=== PATIENT | male | born 1935 | race Caucasian/White ===

== ENCOUNTER 2018-11-30 08:28 | Emergency (ER) | payer MEDICARE, MEDICAID ==
[2018-11-30 08:37] VITALS: BP 106/59
[2018-11-30 09:05] LABS: ANION GAP 13.6; CHLORIDE,CL 102 mmol/L (101-111); SODIUM,NA 135 mmol/L (135-145)
--- NOTE | 2018-11-30 09:07 | EDM.PDOC ---
ED HPI GENERAL MEDICAL PROBLEM - General Chief Complaint: Chest Pain Stated Complaint: AMBULANCE Time Seen by Provider: 11/30/18 08:58 Source of Information: Reports: Patient, EMS History Limitations: Reports: No Limitations - History of Present Illness INITIAL COMMENTS - FREE TEXT/NARRATIVE: This 83 yo male patient was brought to the ED due to neck pain that radiated down into his left arm. The patient reports his neck pains started about 2 days ago, but the tingling in his left arm was first noticed this morning at about 0600. The patient reports his symptoms are better at this time. The patient reports he has no other problems at this time. EMS had given the patient Aspirin and 1 dose of Nitro. 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, Aspirin neck Pain Score (Numeric/FACES): 4 - Related Data Allergies Allergy/AdvReac Type Severity Reaction Status Date / Time No Known Allergies Allergy Verified 11/30/18 08:40 Home Meds: Home Meds Aspirin [Children's Aspirin] 81 mg PO DAILY 10/23/13 [History] Calcium Carbonate/Vitamin D3 [Calcium 600 + Vit D Tablet] 1 each PO DAILY [History] Colestipol HCl 1 gm PO DAILY 10/23/13 [History] Finasteride [Proscar] 5 mg PO DAILY 10/23/13 [History] Nitroglycerin [Nitrostat] 0.4 mg SL ASDIRECTED 10/23/13 [History] Omeprazole 20 mg PO DAILY 10/23/13 [History] Terazosin HCl [Terazosin] 2 mg PO DAILY 10/23/13 [History] Past Medical History Cardiovascular History: Reports: High Cholesterol, Other (See Below) Other Cardiovascular History: pt states heart was racing, spent time in [place] with cardiology, was never informed as to results Respiratory History: Reports: COPD Gastrointestinal History: Reports: GERD Genitourinary History: Reports: BPH Musculoskeletal History: Reports: Arthritis Neurological History: Reports: None Psychiatric History: Reports: None Endocrine/Metabolic History: Reports: None Hematologic History: Reports: None Immunologic History: Reports: None Oncologic (Cancer) History: Reports: None Dermatologic History: Reports: None - Infectious Disease History Infectious Disease History: Reports: Hepatitis A - Past Surgical History HEENT Surgical History: Reports: Cataract Surgery Cardiovascular Surgical History: Reports: None Respiratory Surgical History: Reports: None GI Surgical History: Reports: Hernia, Inguinal Male Surgical History: Reports: TURP-Transurethral Resection of Prostate Neurological Surgical History: Reports: None Musculoskeletal Surgical History: Reports: Hip Replacement, Other (See Below) Other Musculoskeletal Surgeries/Procedures:: right Social & Family History - Family History Family Medical History: Noncontributory - Tobacco Use Smoking Status *Q: Former Smoker Used Tobacco, but Quit: Yes Month/Year Tobacco Last Used: 1979 Second Hand Smoke Exposure: No - Caffeine Use Caffeine Use: Reports: Coffee - Recreational Drug Use Recreational Drug Use: No - Living Situation & Occupation Living situation: Reports: with Family Occupation: Retired ED ROS GENERAL - Review of Systems Review Of Systems: ROS reveals no pertinent complaints other than HPI. ED EXAM, GENERAL - Physical Exam Exam: See Below Exam Limited By: No Limitations General Appearance: Alert, WD/WN, Moderate Distress Eye Exam: Bilateral Eye: EOMI, Normal Inspection, PERRL Ears: Normal External Exam, Normal Canal, Hearing Grossly Normal, Normal TMs Nose: Normal Inspection, Normal Mucosa, No Blood Throat/Mouth: Normal Inspection, Normal Lips, Normal Teeth, Normal Gums, Normal Oropharynx, Normal Voice, No Airway Compromise Head: Atraumatic, Normocephalic Neck: Normal Inspection, Supple, Non-Tender, Full Range of Motion Respiratory/Chest: No Respiratory Distress, Lungs Clear, Normal Breath Sounds, No Accessory Muscle Use, Chest Non-Tender Cardiovascular: Normal Peripheral Pulses, Regular Rate, Rhythm, No Edema, No Gallop, No JVD, No Murmur, No Rub GI/Abdominal: Normal Bowel Sounds, Soft, Non-Tender, No Organomegaly, No Distention, No Abnormal Bruit, No Mass (Male) Exam: Deferred Rectal (Males) Exam: Deferred Back Exam: Normal Inspection, Full Range of Motion, NT Extremities: Normal Inspection, Normal Range of Motion, Non-Tender, Normal Capillary Refill, No Pedal Edema Neurological: Alert, Oriented, CN II-XII Intact, Normal Cognition, Normal Gait, Normal Reflexes, No Motor/Sensory Deficits Psychiatric: Normal Affect, Normal Mood Skin Exam: Warm, Dry, Intact, Normal Color, No Rash Lymphatic: No Adenopathy Course - Vital Signs Last Recorded V/S: Last Vital Signs Temp 37.3 C 11/30/18 08:35 Pulse 90 11/30/18 08:35 Resp 12 11/30/18 08:35 BP 106/59 L 11/30/18 08:35 Pulse Ox 96 11/30/18 08:35 - Orders/Labs/Meds Orders: Active Orders 24 hr Category Date Time Status EKG Documentation Completion [RC] URGENT Care 11/30/18 08:23 Active Labs: Laboratory Tests 11/30/18 11/30/18 Range/Units 08:35 08:35 WBC 12.2 H (5.0-10.0) 10^3/uL RBC 4.29 L (4.6-6.2) 10^6/uL Hgb 13.0 L D (14.0-18.0) g/dL Hct 37.9 L (40.0-54.0) % MCV 88.3 (80-100) fL MCH 30.3 (27.0-34.0) pg MCHC 34.3 (33.0-35.0) g/dL Plt Count 202 (150-450) 10^3/uL Neut % (Auto) 67.9 (42.2-75.2) % Lymph % (Auto) 18.4 L (20.5-50.1) % Eddy % (Auto) 13.4 H (2-8) % Eos % (Auto) 0.1 L (1.0-3.0) % Baso % (Auto) 0.2 (0.0-1.0) % Sodium 135 (135-145) mmol/L Potassium 3.6 (3.6-5.0) mmol/L Chloride 102 (101-111) mmol/L Carbon Dioxide 23.0 (21.0-31.0) mmol/L Anion Gap 13.6 BUN 17 (7-18) mg/dL Creatinine 0.9 (0.6-1.3) mg/dL Est Cr Clr Drug Dosing 55.14 mL/min Estimated GFR (MDRD) > 60 BUN/Creatinine Ratio 18.88 Glucose 130 H (74-105) mg/dL Calcium 8.7 (8.4-10.2) mg/dl Total Bilirubin 2.2 H (0.2-1.0) mg/dL AST 22 (10-42) IU/L ALT 18 (10-60) IU/L Alkaline Phosphatase 82 (42-121) IU/L Troponin I < 0.02 (0.00-0.02) ng/ml Total Protein 6.5 L (6.7-8.2) g/dl Albumin 3.5 (3.2-5.5) g/dl Globulin 3.0 Albumin/Globulin Ratio 1.17 Departure - Departure Time of Disposition: 09:23 Disposition: Home, Self-Care 01 Condition: Fair Clinical Impression: Peripheral neuropathic pain Instructions: Neuropathic Pain Forms: ED Department Discharge Care Plan Goals: The patient was advised of the examination, EKG, lab and x-ray results during the visit. The patient was encouraged to continue to monitor his symptoms. The patient should follow-up with his [facility] provider for continued evaluation and further management. If the patient has any additional symptoms or concerns, the patient should either return to the emergency department or visit his primary care facility. - My Orders Last 24 Hours: My Active Orders 11/30/18 08:23 EKG Documentation Completion [RC] URGENT - Assessment/Plan Last 24 Hours: My Active Orders 11/30/18 08:23 EKG Documentation Completion [RC] URGENT
== END 2018-11-30 09:40 | disposition home or self-care (01) ==
LOC: DL.ED 08:28
DX: M79.2 Neuralgia and neuritis, unspecified (principal); J44.9 Chronic obstructive pulmonary disease, unspecified; Z79.899 Other long term (current) drug therapy; Z87.891 Personal history of nicotine dependence
CPT/HCPCS: 36415; 71045; 80053; 84484; 85025; 93005; 99285

== ENCOUNTER 2021-08-31 12:56 | Emergency (ER) | payer MEDICARE, OTHER ==
[2021-08-31 13:22] VITALS: BP 138/98; PULSE 85
--- NOTE | 2021-08-31 14:33 | EDM.PDOC ---
ED HPI GENERAL MEDICAL PROBLEM - General Chief Complaint: Genitourinary Problem Stated Complaint: BLOOD IN URINE / [facility] SAID GO TO ER Time Seen by Provider: 08/31/21 13:30 Source of Information: Reports: Patient, RN, RN Notes Reviewed History Limitations: Reports: No Limitations - History of Present Illness INITIAL COMMENTS - FREE TEXT/NARRATIVE: Shruthi is an 85 y/o male with a history of TURP and urolift, who presents to the ED via personal vehicle at the request of his [facility] for complaints of hematuria. The patient states his hematuria began abruptly this morning at approximately 0100. He noted a decrease in the amount of kristie-red blood in his urine over the course of the night, but reports he passed what appeared to be a clot at some point. He denies dysuria, inability to void, or flank pain. He denies fever, shaking chills, nausea, vomiting, or abdominal pain. He notes his urine was clear and yellow prior to his presentation today. He denies tobacco, alcohol, or recreational drug use. generalized Pain Score (Numeric/FACES): 3 - Related Data Allergies Allergy/AdvReac Type Severity Reaction Status Date / Time meperidine [From Demerol] Allergy Rash Verified 08/31/21 13:23 Home Meds: Home Meds Aspirin [Children's Aspirin] 81 mg PO DAILY 10/23/13 [History] Calcium Carbonate/Vitamin D3 [Calcium 600 + Vit D Tablet] 2 each PO DAILY 10/23/13 [History] Colestipol HCl 1 gm PO BID 10/23/13 [History] Finasteride [Proscar] 5 mg PO BEDTIME 10/23/13 [History] Nitroglycerin [Nitrostat] 0.4 mg SL ASDIRECTED 10/23/13 [History] Terazosin HCl [Terazosin] 2 mg PO BEDTIME 10/23/13 [History] Cetirizine HCl 10 mg PO BEDTIME 08/31/21 [History] Famotidine 20 mg PO BID 08/31/21 [History] Levothyroxine [Synthroid] 50 mcg PO ACBREAKFAST 08/31/21 [History] Metoprolol Tartrate 12.5 mg PO .MORNING 08/31/21 [History] Metoprolol Tartrate 25 mg PO .EVENING 08/31/21 [History] Past Medical History Cardiovascular History: Reports: High Cholesterol, Other (See Below) Other Cardiovascular History: pt states heart was racing, spent time in [place] with cardiology, was never informed as to results Respiratory History: Reports: COPD Gastrointestinal History: Reports: GERD Genitourinary History: Reports: BPH Musculoskeletal History: Reports: Arthritis Neurological History: Reports: None Psychiatric History: Reports: None Endocrine/Metabolic History: Reports: None Hematologic History: Reports: None Immunologic History: Reports: None Oncologic (Cancer) History: Reports: None Dermatologic History: Reports: None - Infectious Disease History Infectious Disease History: Reports: Hepatitis A - Past Surgical History HEENT Surgical History: Reports: Cataract Surgery Cardiovascular Surgical History: Reports: None Respiratory Surgical History: Reports: None GI Surgical History: Reports: Hernia, Inguinal Male Surgical History: Reports: TURP-Transurethral Resection of Prostate Other Male Surgeries/Procedures: urolift Neurological Surgical History: Reports: None Musculoskeletal Surgical History: Reports: Hip Replacement, Other (See Below) Other Musculoskeletal Surgeries/Procedures:: right Social & Family History - Family History Family Medical History: No Pertinent Family History - Tobacco Use Tobacco Use Status *Q: Never Tobacco User Second Hand Smoke Exposure: No - Caffeine Use Caffeine Use: Reports: Coffee - Recreational Drug Use Recreational Drug Use: No - Living Situation & Occupation Living situation: Reports: with Family Occupation: Retired ED ROS GENERAL - Review of Systems Review Of Systems: Comprehensive ROS is negative, except as noted in HPI. ED EXAM, RENAL/ - Physical Exam Exam: See Below Exam Limited By: No Limitations General Appearance: Alert, No Apparent Distress Ears: Normal External Exam, Hearing Grossly Normal Nose: Normal Inspection, No Blood Throat/Mouth: Normal Inspection, Normal Oropharynx, Normal Voice, No Airway Compromise Head: Atraumatic, Normocephalic Neck: Normal Inspection, Full Range of Motion Respiratory/Chest: No Respiratory Distress, Lungs Clear, Normal Breath Sounds, No Accessory Muscle Use, Chest Non-Tender Cardiovascular: Normal Peripheral Pulses, Regular Rate, Rhythm, No Gallop, No Murmur, No Rub GI/Abdominal: Normal Bowel Sounds, Soft, Non-Tender, No Distention, No Abnormal Bruit, No Mass, Pelvis Stable. No: Guarding, Rigid, Rebound (Male) Exam: Deferred Rectal (Males) Exam: Deferred Back Exam: Normal Inspection, Full Range of Motion. No: CVA Tenderness (L), CVA Tenderness (R) Extremities: Normal Inspection, Normal Range of Motion, Normal Capillary Refill Neurological: Alert, Oriented, CN II-XII Intact, Normal Cognition, Normal Gait, No Motor/Sensory Deficits Psychiatric: Normal Affect, Normal Mood Skin Exam: Warm, Dry, Intact, Normal Color, No Rash. No: Cyanosis, Jaundice, Mottled, Pallor Course - Vital Signs Last Recorded V/S: Last Vital Signs Temp 98.2 F 08/31/21 13:18 Pulse 85 08/31/21 13:18 Resp 20 08/31/21 13:18 BP 138/98 H 08/31/21 13:18 Pulse Ox 94 L 08/31/21 13:18 - Orders/Labs/Meds Labs: Laboratory Tests 08/31/21 Range/Units 13:07 Urine Color Yellow (YELLOW) Urine Appearance Clear (CLEAR) Urine pH 5.5 (5.0-9.0) Ur Specific [place] 1.025 (1.005-1.030) Urine Protein Negative (NEGATIVE) Urine Glucose (UA) Negative (NEGATIVE) Urine Ketones Negative (NEGATIVE) Urine Occult Blood Small H (NEGATIVE) Urine Nitrite Negative (NEGATIVE) Urine Bilirubin Negative (NEGATIVE) Urine Urobilinogen 0.2 (0.2-1.0) mg/dL Ur Leukocyte Esterase Negative (NEGATIVE) Urine RBC 0-5 (0-5) /HPF Urine WBC 0-5 (0-5/HPF) /HPF Ur Epithelial Cells Rare (NOT SEEN) /HPF Urine Bacteria Not seen (0-FEW/HPF) /HPF Urine Mucus Rare (NOT SEEN) /LPF - Radiology Interpretation Free Text/Narrative:: [facility] - Final Radiology Report Call: [phone] assistance Online chat: [email or web address] Name: SHRUTHI DAVE Age: 85Years M Date: 08/31/2021 SSN: -- : [id number] Study: CT ABDOMEN PELVIS WO CONT Requesting Physician: Mikki Ambrosio Images: [id number] Addl Studies: Provided Clinical History: Hematuria; Hx of TURP and urolift many years ago Contrast: Without Contrast Medium: Contrast Amount: Contrast Method: Page 1 of 2 PROCEDURE INFORMATION: Exam: CT Abdomen And Pelvis Without Contrast Exam date and time: 08/31/2021 2:26 PM Age: 85 years old Clinical indication: Other: Hematuria; HX of turp and urolift many years ago; Prior surgery; Surgery date: 6+ months TECHNIQUE: Imaging protocol: Computed tomography of the abdomen and pelvis without contrast. Radiation optimization: All CT scans at this facility use at least one of these dose optimization techniques: automated exposure control; mA and/or kV adjustment per patient size (includes targeted exams where dose is matched to clinical indication); or iterative reconstruction. COMPARISON: No relevant prior studies available. FINDINGS: Lungs: Posterior bilateral lower lobe bulla and fibrosis. Liver: Normal. No mass. Gallbladder and bile ducts: Cholecystectomy. No ductal dilation. Pancreas: Normal. No ductal dilation. Spleen: Normal. No splenomegaly. Adrenal glands: Normal. No mass. Kidneys and ureters: Normal. No hydronephrosis. Stomach and bowel: Distal descending and sigmoid diverticulosis. No diverticulitis. No obstruction. No mucosal thickening. Appendix: No evidence of appendicitis. Intraperitoneal space: Small focal left anterior pelvic fluid collection. No free air. No significant fluid collection. Vasculature: Aortoiliac atherosclerotic calcification. No abdominal aortic aneurysm. Lymph nodes: Unremarkable. No enlarged lymph nodes. Urinary bladder: Small poorly distended. Reproductive: TURP. Bones/joints: Right total hip prosthesis. Mild degenerative disease. No acute fracture. Soft tissues: Unremarkable. IMPRESSION: 1. No acute findings. No renal stones or hydronephrosis. 2. Diverticulosis. No diverticulitis. 3. Left 2.8 cm small soft tissue density, seroma or complex fluid collection previously described on comparison CT exam report 2014. 4. Right total hip arthroplasty. 5. Cholecystectomy. 6. TURP with metallic sutures. Thank you for allowing us to participate in the care of your patient. Dictated and Authenticated by: Darline Monahan MD 08/31/2021 3:05 PM Central Time ([place] & [place]) - Re-Assessments/Exams Free Text/Narrative Re-Assessment/Exam: 08/31/21 Findings of examination, lab work, and imaging reviewed with patient. Patient instructed to follow up with primary care provider regarding todays visit. Red flag signs and symptoms which would warrant immediate reevaluation reviewed. Patient verbalized understanding and agreement with the plan of care. Departure - Departure Time of Disposition: 15:54 Disposition: Home, Self-Care 01 Condition: Good Clinical Impression: Diverticulosis Hematuria Qualifiers: Hematuria type: other microscopic Qualified Code(s): R31.29 - Other microscopic hematuria - Discharge Information *PRESCRIPTION DRUG MONITORING PROGRAM REVIEWED*: Not Applicable *COPY OF PRESCRIPTION DRUG MONITORING REPORT IN PATIENT LIV: Not Applicable Instructions: Hematuria, Adult Referrals: PCP,None [Primary Care Provider] - Forms: ED Department Discharge Additional Instructions: 1.) Follow up with your primary care provider regarding today's visit. 2.) Drink plenty of water to stay hydrated. 3.) Do not hold your urine for long periods of time. Sepsis Event Note (ED) - Evaluation Sepsis Screening Result: No Definite Risk
--- NOTE | 2021-08-31 15:05 | CT ---
PROCEDURE INFORMATION: Exam: CT Abdomen And Pelvis Without Contrast Exam date and time: 08/31/2021 2:26 PM Age: 85 years old Clinical indication: Other: Hematuria; HX of turp and urolift many years ago; Prior surgery; Surgery date: 6+ months TECHNIQUE: Imaging protocol: Computed tomography of the abdomen and pelvis without contrast. Radiation optimization: All CT scans at this facility use at least one of these dose optimization techniques: automated exposure control; mA and/or kV adjustment per patient size (includes targeted exams where dose is matched to clinical indication); or iterative reconstruction. COMPARISON: No relevant prior studies available. FINDINGS: Lungs: Posterior bilateral lower lobe bulla and fibrosis. Liver: Normal. No mass. Gallbladder and bile ducts: Cholecystectomy. No ductal dilation. Pancreas: Normal. No ductal dilation. Spleen: Normal. No splenomegaly. Adrenal glands: Normal. No mass. Kidneys and ureters: Normal. No hydronephrosis. Stomach and bowel: Distal descending and sigmoid diverticulosis. No diverticulitis. No obstruction. No mucosal thickening. Appendix: No evidence of appendicitis. Intraperitoneal space: Small focal left anterior pelvic fluid collection. No free air. No significant fluid collection. Vasculature: Aortoiliac atherosclerotic calcification. No abdominal aortic aneurysm. Lymph nodes: Unremarkable. No enlarged lymph nodes. Urinary bladder: Small poorly distended. Reproductive: TURP. Bones/joints: Right total hip prosthesis. Mild degenerative disease. No acute fracture. Soft tissues: Unremarkable. IMPRESSION: 1. No acute findings. No renal stones or hydronephrosis. 2. Diverticulosis. No diverticulitis. 3. Left 2.8 cm small soft tissue density, seroma or complex fluid collection previously described on comparison CT exam report 2014. 4. Right total hip arthroplasty. 5. Cholecystectomy. 6. TURP with metallic sutures.
== END 2021-08-31 16:02 | disposition home or self-care (01) ==
LOC: DL.ED 12:56
DX: R31.29 Other microscopic hematuria (principal); K57.90 Diverticulosis of intestine, part unspecified, without perforation or abscess without bleeding; E78.00 Pure hypercholesterolemia, unspecified; J44.9 Chronic obstructive pulmonary disease, unspecified; K21.9 Gastro-esophageal reflux disease without esophagitis; N40.0 Benign prostatic hyperplasia without lower urinary tract symptoms; Z88.5 Allergy status to narcotic agent; Z79.82 Long term (current) use of aspirin; Z79.899 Other long term (current) drug therapy
CPT/HCPCS: 74176; 81001; 99284-25

== ENCOUNTER 2022-06-03 15:46 | Emergency (ER) | payer OTHER ==
[2022-06-03 15:56] VITALS: BP 193/62; PULSE 63
== END 2022-06-03 16:36 | disposition home or self-care (01) ==
LOC: DL.ED 15:46
DX: H10.13 Acute atopic conjunctivitis, bilateral (principal); H04.123 Dry eye syndrome of bilateral lacrimal glands; J44.9 Chronic obstructive pulmonary disease, unspecified; K21.9 Gastro-esophageal reflux disease without esophagitis; E78.00 Pure hypercholesterolemia, unspecified; Z88.5 Allergy status to narcotic agent; Z79.82 Long term (current) use of aspirin; Z79.899 Other long term (current) drug therapy
CPT/HCPCS: 99283